=== PATIENT | male | born 1940 | race African-American/Black ===

== ENCOUNTER → 2018-02-22 | Outpatient (CLI) | payer MEDICARE, OTHER ==
[~2018-02-22] VITALS: Ht 172.7 cm; Wt 79.0 kg
[~2018-02-22] MED LIST: ADV250 IH; ALBU8HFA IH; ASPI-1182 PO; AZEL137S8 NASAL; FLUT16H NASAL; FURO40 PO; LOSA50TA25 PO; PANT40TA25 PO; RANI150T7 PO; TAMS0.4C32 PO; TIOT4MIS2 IH; UBID100C4 PO; VITAD1000 PO
[2018-02-22 10:40] VITALS: BP 153/77
== END | disposition home or self-care (01) ==
LOC: SRCNTR 10:21
PROVIDERS: ATTEND Internal Medicine
DX: J84.10 Pulmonary fibrosis, unspecified (principal); J47.9 Bronchiectasis, uncomplicated; J32.9 Chronic sinusitis, unspecified; R09.82 Postnasal drip; N17.9 Acute kidney failure, unspecified; Z87.891 Personal history of nicotine dependence
CPT/HCPCS: G0463

== ENCOUNTER → 2018-05-10 | Outpatient (CLI) | payer MEDICARE, OTHER ==
[~2018-05-10] VITALS: Ht 172.7 cm; Wt 78.0 kg
[~2018-05-10] MED LIST changes: -LOSA50TA25 PO; +LOSA50TA64 PO
[2018-05-10 09:20] VITALS: BP 161/68
== END | disposition home or self-care (01) ==
LOC: SRCNTR 09:17
PROVIDERS: ATTEND Internal Medicine
DX: J84.10 Pulmonary fibrosis, unspecified (principal); N17.9 Acute kidney failure, unspecified; I10 Essential (primary) hypertension; J47.9 Bronchiectasis, uncomplicated; R09.82 Postnasal drip; Z87.891 Personal history of nicotine dependence
CPT/HCPCS: G0463

== ENCOUNTER → 2018-06-06 | Outpatient (CLI) | payer MEDICARE, OTHER ==
[~2018-06-06] VITALS: Ht 172.7 cm; Wt 75.5 kg
[2018-06-06 10:05] VITALS: BP 149/71
== END | disposition home or self-care (01) ==
LOC: SRCNTR 10:05
PROVIDERS: ATTEND Internal Medicine
DX: J47.9 Bronchiectasis, uncomplicated (principal); J84.10 Pulmonary fibrosis, unspecified
CPT/HCPCS: G0463

== ENCOUNTER 2019-04-05 10:26 | Day surgery (SDC) | payer MEDICARE, OTHER ==
[~2019-04-05] VITALS: Ht 172.7 cm; Wt 71.4 kg
[~2019-04-05 10:26] MED LIST changes: +CHOL100018 PO; +HEPARIN SODIUM 1000 UNITS/NS 500 ML ONE; +LIDOCAINE/PF 1% 30 ML VIAL ONE; +TAMS-13 PO; -TAMS0.4C32 PO; -VITAD1000 PO
[2019-04-05] MEDS ORDERED: KETAMINE HCL 50 MG/ML 10 ML VIAL IVP ONE (10:27)
[2019-04-05] MEDS ORDERED: HEPARIN SODIUM,PORCINE 1,000 UNITS/ML 10 ML VIAL IVP ONE (10:27)
[2019-04-05] MEDS ORDERED: PROPOFOL 1% 20 ML VIAL IVP ONE (10:27)
[2019-04-05] MEDS ORDERED: EPHEDrine SULFATE 50 MG/ML VIAL IM ONE (10:27)
[2019-04-05] MEDS ORDERED: PHENYLEPHRINE HCL 10 MG/ML VIAL IVP ONE (10:27)
[2019-04-05] MEDS ORDERED: 0.9% SODIUM CHLORIDE 10 ML VIAL IVP ONE (10:27)
[2019-04-05] MEDS ORDERED: FentaNYL CITRATE-PF 100 MCG/2 ML VIAL IVP ONE (10:27)
[2019-04-05] MEDS ORDERED: MIDAZOLAM HCL 2 MG/2 ML VIAL IVP ONE (10:27)
[2019-04-05] MEDS ORDERED: SODIUM CHLORIDE 0.9% 1,000 ML ONE (10:37)
[2019-04-05 10:57] LABS: EOSINOPHILS % (AUTO) 9.5 % (1.0-6.0); HEMATOCRIT 38.4 % (41-53); HEMOGLOBIN 12.6 g/dL (13.5-17.5); LYMPHOCYTES # (AUTO) 2.4 K/uL (1.0-4.8); LYMPHOCYTES % (AUTO) 29.5 % (22.0-44.0); MEAN CORPUSCULAR HEMOGLOBIN 29.5 pg (26.0-34.0); MEAN CORPUSCULAR HGB CONC 32.8 G/dL (31.0-37.0); MEAN CORPUSCULAR VOLUME 90 fL (80-100); MONOCYTES % (AUTO) 12.2 % (2.0-9.0); NEUTROPHILS # (AUTO) 3.9 K/uL (1.8-7.7); NEUTROPHILS % (AUTO) 47.8 % (40.0-70.0); PLATELET COUNT (AUTO) 186 K/uL (150-450); RED BLOOD CELL COUNT(AUTO) 4.27 MIL/uL (4.50-5.90); RED CELL DISTRIBUTION WIDTH 15.8 % (11.5-14.5)
[2019-04-05] MEDS ORDERED: SODIUM CHLORIDE 0.9% 1,000 ML IV ONE (11:00)
[2019-04-05] MEDS ORDERED: FOLI1TAB85 PO (11:01)
[2019-04-05] MEDS ORDERED: ATOR40TA28 PO (11:01)
[2019-04-05] MEDS ORDERED: SUCR1TAB PO (11:01)
[2019-04-05] MEDS ORDERED: SENN-176 PO (11:01)
[2019-04-05] MEDS ORDERED: FAMO20 PO (11:01)
[2019-04-05] MEDS ORDERED: DOCU-342 PO (11:01)
[2019-04-05 11:09] LABS: CALCIUM, TOTAL 9.3 mg/dL (8.8-10.5); CREATININE 9.06 mg/dL (0.60-1.30); POTASSIUM 3.8 mmol/L (3.5-5.1)
[2019-04-05 11:15] LABS: ALBUMIN 3.7 g/dL (3.4-5.0); BILIRUBIN,TOTAL 0.4 mg/dL (0.1-1.0); TOTAL PROTEIN, SERUM 7.4 g/dL (6.4-8.2)
[2019-04-05 11:29] LABS: PROTHROMBIN TIME 10.3 SEC (9.4-11.6)
[2019-04-05] MEDS ORDERED: BUPIVACAINE HCL/PF 0.5% 30 ML VIAL INJ ONE (12:00)
[2019-04-05] MEDS ORDERED: FentaNYL CITRATE-PF 100 MCG/2 ML VIAL IVP PRN (13:15)
[2019-04-05] MEDS ORDERED: MEPERIDINE-PF 25 MG/ML VIAL IVP PRN (13:15)
[2019-04-05] MEDS ORDERED: HYDROmorphone 2 MG/ML SYRINGE IVP PRN (13:15)
[2019-04-05] MEDS ORDERED: OXYGEN THERAPY IH SCH (20:00)
== END 2019-04-05 15:15 | disposition home or self-care (01) ==
LOC: SURGERY 10:26
PROVIDERS: ATTEND Surgery
DX: I12.0 Hypertensive chronic kidney disease with stage 5 chronic kidney disease or end stage renal disease (principal); N18.6 End stage renal disease; J43.9 Emphysema, unspecified; N40.0 Benign prostatic hyperplasia without lower urinary tract symptoms; K21.9 Gastro-esophageal reflux disease without esophagitis; Z99.2 Dependence on renal dialysis; Z98.890 Other specified postprocedural states; Z90.49 Acquired absence of other specified parts of digestive tract; Z79.899 Other long term (current) drug therapy
CPT/HCPCS: 36415; 36821; 80053; 85025; 85610; 85730; 93005; J1644 ×2; J2250; J2370; J2704; J3010; J3490 ×4; J7030